=== PATIENT | female | born 1955 | race Caucasian/White ===

== ENCOUNTER 2017-09-24 19:10 | Emergency (ER) | payer BC, OTHER ==
[~2017-09-24] VITALS: Ht 154.9 cm; Wt 54.0 kg
[~2017-09-24 19:10] MED LIST: ACTO5TAB
[2017-09-24 19:40] VITALS: BP 153/75; PULSE 83; RESP 16; TEMP 98.6; O2SAT 98
[2017-09-24] MEDS ORDERED: ORPHENADRINE INJ 60 MG/2 ML AMP IM ONE (20:15)
[2017-09-24] MEDS ORDERED: KETOROLAC TROMETHAMINE 60 MG/2 ML (IM) VIAL IM ONE (20:15)
[2017-09-24] MEDS ORDERED: ROBA500T PO (20:25)
[2017-09-24] MEDS ORDERED: MEDR4PAK PO (20:25)
--- NOTE | 2017-09-24 20:27 | PD ---
HPI Chief Complaint: Back/ Neck Pain or Injury Time Seen by Provider: 20:09 Travel History International Travel<30 days: No Contact w/Intl Traveler<30days: No Traveled to known affect area: No History of Present Illness HPI 62-year-old female here with low back pain that radiates into the left leg 4 days. She believes she injured the back while she was bending over and twisting putting away [employer] decorations. She denies fever, chills, incontinence, saddle anesthesia, paresthesia or weakness of the extremity. Symptom severity is moderate. Aggravated by movement and walking and relieved with rest. PFSH Past Medical History Arthritis: No Blood Disorders: No Cancer: No Cardiovascular Problems: No Diminished Hearing: No Endocrine: No Genitourinary: No Immune Disorder: No Musculoskeletal: Yes Neurologic: No Psychiatric: No Reproductive: No Respiratory: No Tetanus Vaccination: Unknown Influenza Vaccination: No ?: Not Past Surgical History Abdominal Surgery: No Appendectomy: Yes Cardiac Surgery: No Ear Surgery: No Endocrine Surgery: No Eye Surgery: No Genitourinary Surgery: No Gynecologic Surgery: No Oral Surgery: No Thoracic Surgery: No Social History Alcohol Use: Yes ("A DRINK A DAY") Tobacco Use: Yes (09/19 PPD) Substance Use: No Allergies-Medications (Allergen,Severity, Reaction): Coded Allergies: No Known Allergies (Verified Allergy, Mild, 09/24/17) Reported Meds & Prescriptions Reported Meds & Active Scripts Active Reported Actonel (Risedronate) 5 Mg Tab 0 Mg UNKNOWN DOSE Review of Systems Except as stated in HPI: all other systems reviewed are Neg General / Constitutional: No: Fever Eyes: No: Visual changes HENT: No: Headaches Cardiovascular: No: Chest Pain or Discomfort Respiratory: No: Shortness of Breath Gastrointestinal: No: Abdominal Pain Genitourinary: No: Dysuria Physical Exam Narrative GENERAL: Alert female. Appearing. SKIN: Warm and dry. HEAD: Atraumatic. Normocephalic. EYES: Pupils equal and round. ENT: No nasal bleeding or discharge. Mucous membranes pink and moist. NECK: Trachea midline. No JVD. CARDIOVASCULAR: Regular rate and rhythm. RESPIRATORY: No accessory muscle use. Clear to auscultation. Breath sounds equal bilaterally. GASTROINTESTINAL: Abdomen soft, non-tender, nondistended. MUSCULOSKELETAL: Extremities without clubbing, cyanosis, or edema. Patient is able to flex and extend the great toe bilaterally. BACK: No CVA tenderness. No point tenderness on palpation of the spine.Tenderness over the left sacroiliac crest. Positive straight leg raise on the left. NEUROLOGICAL: Awake and alert. Motor grossly within normal limits. Five out of 5 muscle strength in the arms and legs. Normal speech. Data Data Last Documented VS Vital Signs Date Time Temp Pulse Resp B/P (MAP) Pulse Ox O2 Delivery O2 Flow Rate FiO2 09/24/17 19:40 98.6 83 16 153/75 (101) 98 Orders Orders Ketorolac Inj (Toradol Inj) (09/24/17 20:15) Orphenadrine Inj (Norflex Inj) (09/24/17 20:15) MDM Medical Decision Making Medical Screen Exam Complete: Yes Emergency Medical Condition: Yes Differential Diagnosis Sciatica, lumbar strain, herniated disc Narrative Course 62-year-old female here with left low back pain that radiates down the left leg. She has normal neurologic exam. She'll be treated for sciatica. Diagnosis Primary Impression: Sciatica Qualified Codes: M54.32 - Sciatica, left side Referrals: Primary Care Physician Additional Instructions: Medications as prescribed. Ibuprofen 800 mg (4 tablet) every 6 hours as needed for pain. Take this medication with food. Ice and/or heat for comfort. Follow-up with her primary doctor. Scripts Methocarbamol (Robaxin) 500 Mg Tab 500 MG PO TID for Muscle Spasm, #12 TAB 0 Refills Prov: Berta Donovan 09/24/17 Methylprednisolone Dosepak (Medrol Dosepak) 4 Mg Dspk 4 MG PO DIRECTED, #1 DSPK 0 Refills Per Pharmacist direction Prov: Berta Donovan 09/24/17 Disposition: 01 DISCHARGE HOME Condition: Stable Berta Donovan Sep 24, 2017 20:27
== END 2017-09-24 20:47 | disposition home or self-care (01) ==
LOC: PHEFT 19:10
DX: M54.32 Sciatica, left side (principal); F17.210 Nicotine dependence, cigarettes, uncomplicated
CPT/HCPCS: 96372; 99284; J1885; J2360